=== PATIENT | male | born 1995 | race Two or more races ===

== ENCOUNTER 2022-08-05 16:39 | Emergency (ER) | payer OTHER ==
[~2022-08-05] VITALS: Ht 175.3 cm; Wt 104.5 kg
[2022-08-05 18:00] VITALS: TEMP 98.4
[2022-08-05 19:50] VITALS: BP 120/71; PULSE 71; RESP 17
== END 2022-08-05 19:59 ==
LOC: EMS 16:40
DX: S63.501A Unspecified sprain of right wrist, initial encounter (principal); Z88.8 Allergy status to other drugs, medicaments and biological substances; X58.XXXA Exposure to other specified factors, initial encounter; Y93.89 Activity, other specified; Y92.89 Other specified places as the place of occurrence of the external cause; Y99.8 Other external cause status
CPT/HCPCS: 99283